=== PATIENT | female | born 1935 | race Caucasian/White ===

== ENCOUNTER 2016-07-04 15:22 | Emergency (ER) | payer OTHER, BC ==
[~2016-07-04] VITALS: Ht 154.9 cm; Wt 97.4 kg
[~2016-07-04 15:22] MED LIST: ALPRAZOLAM0.25 M2 PO; BENICAR40 MG; BYSTOLIC10 MG; DOXAZOSIN MESYLA2 MG; HYDROCHLOROTHIA25 MG PO; LEVOTHYROXINE100 MCG; LIPITOR20 MG; NIFEDIPINE ER60 MG; OCUVITE LUTEIN1 EACH PO; XARELTO10 MG PO
[2016-07-04 17:51] VITALS: BP 153/77
== END 2016-07-04 17:51 | disposition home or self-care (01) ==
LOC: EME 15:22 → RME 15:22
DX: S80.11XA Contusion of right lower leg, initial encounter (principal); Z79.01 Long term (current) use of anticoagulants; W22.8XXA Striking against or struck by other objects, initial encounter; E78.5 Hyperlipidemia, unspecified; I10 Essential (primary) hypertension; E03.9 Hypothyroidism, unspecified; Z88.2 Allergy status to sulfonamides; Z88.0 Allergy status to penicillin
CPT/HCPCS: 93971; 99281; 99283

== ENCOUNTER 2016-12-16 10:56 | Inpatient (IN) | payer OTHER, BC ==
[~2016-12-16] VITALS: Ht 154.9 cm; Wt 99.8 kg
[~2016-12-16 10:56] MED LIST changes: -BYSTOLIC10 MG; +BYSTOLIC10 MG PO; -DOXAZOSIN MESYLA2 MG; +DOXAZOSIN MESYLA2 MG PO; -LEVOTHYROXINE100 MCG; +LEVOTHYROXINE100 MCG PO; -LIPITOR20 MG; +LIPITOR20 MG PO
[2016-12-16 13:00] LABS: HEMATOCRIT 43.4 % (36.0-46.0); MCH 29.2 PG (29.0-34.0); MCHC 33.4 G/DL (30.0-36.0); MCV 87.3 FL (83-99); PLATELET COUNT 163 K/uL (156-360); RBC DIS.WIDTH-CV 13.1 % (11.8-14.6); RBC DIS.WIDTH-SD 41.4 % (39-53); RED BLOOD COUNT 4.97 M/uL (3.80-5.20); WHITE BLOOD COUNT 7.2 K/uL (4.1-10.2)
[2016-12-16 13:12] LABS: INTER. NORMALIZED RATIO 1.1; PROTHROMBIN TIME 11.8 SEC (10.2-12.9)
[2016-12-16 13:12] LABS: CHLORIDE 103 mEq/L (99-109); SODIUM 137 mEq/L (136-147)
[2016-12-16 13:13] LABS: MAGNESIUM 2.1 mg/dL (1.3-2.7)
[2016-12-16 13:14] LABS: D-DIMER ELISA < 150.00 ng/mLDDU (<230); PTT 29.8 SEC (25-37)
[2016-12-16 13:14] LABS: GLUCOSE 140 mg/dL (70-99)
[2016-12-16 13:16] LABS: ANION GAP 10 MEQ/L (2-14)
[2016-12-16 13:18] LABS: GFR ESTIMATE (CALCULATED) > 59 mL/min/
[2016-12-16 13:19] LABS: UREA NITROGEN (BUN) 17 mg/dL (9-23)
[2016-12-16 13:27] LABS: TROP-I INTERPRETATION NEGATIVE; TROPONIN-I < 0.01 ng/mL (0.0-0.30)
[2016-12-16] MEDS ORDERED: COZAAR100 MG PO (14:11)
[2016-12-16] MEDS ORDERED: XARELTO20 MG PO (14:11)
[2016-12-16] MEDS ORDERED: PRESERVISION T1 EACH PO (14:12)
[2016-12-16] MEDS ORDERED: CELEXA20 MG PO (14:13)
[2016-12-16] MEDS ORDERED: CALTRATE PLUS1 EACH PO (14:13)
[2016-12-16] MEDS ORDERED: PROCARDIA XL30 MG PO (14:14)
[2016-12-16 18:10] VITALS: BP 118/79
[2016-12-16 18:47] LABS: TROP-I INTERPRETATION NEGATIVE; TROPONIN-I 0.01 ng/mL (0.0-0.30)
[2016-12-16 19:45] VITALS: BP 113/68
[2016-12-16 22:58] VITALS: BP 114/78
[2016-12-17] VITALS (10 sets, daily range): BP systolic 108–161; BP diastolic 67–91
[2016-12-17 00:24] LABS: TROP-I INTERPRETATION NEGATIVE; TROPONIN-I 0.02 ng/mL (0.0-0.30)
[2016-12-17 05:51] LABS: MCHC 33.3 G/DL (30.0-36.0); MCV 87.2 FL (83-99); PLATELET COUNT 163 K/uL (156-360); RBC DIS.WIDTH-CV 13.2 % (11.8-14.6); RBC DIS.WIDTH-SD 42.3 % (39-53); RED BLOOD COUNT 4.93 M/uL (3.80-5.20); WHITE BLOOD COUNT 7.9 K/uL (4.1-10.2)
[2016-12-17 06:17] LABS: ANION GAP 10 MEQ/L (2-14); CHLORIDE 102 MEQ/L (99-109); GFR ESTIMATE (CALCULATED) > 59 mL/min/; GLUCOSE 130 mg/dL (70-99); POTASSIUM 3.7 MEQ/L (3.7-5.4); SAMPLE HEMOLYSIS CHECK 0; SAMPLE ICTERIC CHECK 0; SAMPLE LIPEMIA CHECK 0; SODIUM 136 MEQ/L (136-147); UREA NITROGEN (BUN) 16 mg/dL (9-23)
[2016-12-18 08:07] VITALS: BP 113/74
[2016-12-18] MEDS ORDERED: DILTIAZEM 24HR180 MG PO (09:16)
[2016-12-19] MEDS ORDERED: LOSARTAN POTAS100 MG PO (15:21)
[2016-12-19] MEDS ORDERED: TEMOVATE 0.05%30 GM TP (17:55)
== END 2016-12-18 09:47 | disposition home or self-care (01) | DRG 310 ==
LOC: EME 10:56 → EDOF 15:36 → 4EAST 15:36 → ENRESERV 15:37 → 4EAST 17:46
PROVIDERS: Emergency Medicine; Hospitalist
DX: I48.0 Paroxysmal atrial fibrillation (principal); R07.9 Chest pain, unspecified; I10 Essential (primary) hypertension; R42 Dizziness and giddiness; E03.9 Hypothyroidism, unspecified; E78.5 Hyperlipidemia, unspecified; E66.9 Obesity, unspecified; Z68.39 Body mass index [BMI] 39.0-39.9, adult; Z86.718 Personal history of other venous thrombosis and embolism; Z87.891 Personal history of nicotine dependence
CPT/HCPCS: 71010; 80048; 83735; 84443; 84484; 85027; 85379; 85610; 85730; 93005; 99281; 99285; J7040

== ENCOUNTER 2016-12-19 14:22 | Inpatient (IN) | payer OTHER, BC ==
[~2016-12-19] VITALS: Ht 180.3 cm; Wt 97.9 kg
[~2016-12-19 14:22] MED LIST changes: +CALTRATE PLUS1 EACH PO; +CELEXA20 MG PO; +COZAAR100 MG PO; +DILTIAZEM 24HR180 MG PO; +PRESERVISION T1 EACH PO; +PROCARDIA XL30 MG PO; +XARELTO20 MG PO
[2016-12-19 14:53] LABS: MCH 29.7 PG (29.0-34.0); MCV 87.4 FL (83-99); MEAN PLAT.VOLUME 12.6 uM^3 (9.5-12.4); PLATELET COUNT 175 K/uL (156-360); RBC DIS.WIDTH-CV 13.1 % (11.8-14.6); RBC DIS.WIDTH-SD 41.7 % (39-53); RED BLOOD COUNT 4.92 M/uL (3.80-5.20); WHITE BLOOD COUNT 7.8 K/uL (4.1-10.2)
[2016-12-19 15:05] LABS: CHLORIDE 102 mEq/L (99-109); POTASSIUM 3.9 mEq/L (3.7-5.4); SODIUM 135 mEq/L (136-147)
[2016-12-19 15:07] LABS: GLUCOSE 172 mg/dL (70-99)
[2016-12-19 15:08] LABS: ANION GAP 10 MEQ/L (2-14)
[2016-12-19 15:11] LABS: GFR ESTIMATE (CALCULATED) > 59 mL/min/; UREA NITROGEN (BUN) 19 mg/dL (9-23)
[2016-12-19 15:14] LABS: TROP-I INTERPRETATION NEGATIVE; TROPONIN-I < 0.01 ng/mL (0.0-0.30)
[2016-12-19] MEDS ORDERED: LOSARTAN POTAS100 MG PO (15:21)
[2016-12-19] MEDS ORDERED: TEMOVATE 0.05%30 GM TP (17:55)
[2016-12-19 20:29] VITALS: BP 152/73
[2016-12-19 23:50] VITALS: BP 125/78
[2016-12-20 04:27] VITALS: BP 140/84
[2016-12-20 05:12] LABS: HEMATOCRIT 39.9 % (36.0-46.0); MCH 29.9 PG (29.0-34.0); MCHC 33.8 G/DL (30.0-36.0); MCV 88.3 FL (83-99); MEAN PLAT.VOLUME 13.1 uM^3 (9.5-12.4); PLATELET COUNT 182 K/uL (156-360); RBC DIS.WIDTH-CV 13.4 % (11.8-14.6); RBC DIS.WIDTH-SD 43.6 % (39-53); RED BLOOD COUNT 4.52 M/uL (3.80-5.20); WHITE BLOOD COUNT 7.6 K/uL (4.1-10.2)
[2016-12-20 05:46] LABS: ANION GAP 8 MEQ/L (2-14); CHLORIDE 103 MEQ/L (99-109); GFR ESTIMATE (CALCULATED) > 59 mL/min/; POTASSIUM 3.9 MEQ/L (3.7-5.4); SAMPLE HEMOLYSIS CHECK 0; SAMPLE ICTERIC CHECK 0; SAMPLE LIPEMIA CHECK 0; SODIUM 138 MEQ/L (136-147); UREA NITROGEN (BUN) 20 mg/dL (9-23)
[2016-12-20 05:52] LABS: GLUCOSE 105 mg/dL (70-99)
[2016-12-20 08:21] VITALS: BP 176/97
[2016-12-20 11:40] VITALS: BP 137/70
[2016-12-20 13:06] LABS: ADD MIUA? NO; BILIRUBIN NEGATIVE; BLOOD NEGATIVE; COLOR YELLOW ((YELLOW)); GLUCOSE (STRIP) NEGATIVE; KETONES NEGATIVE; LEUKOCYTES NEGATIVE; NITRITE NEGATIVE; PROTEIN (STRIP) NEGATIVE; SPECIFIC GRAVITY 1.011 (1.000-1.030); UCUL ADDED? NO; UROBILINOGEN 0.2 MG/DL (0.2-1.0)
[2016-12-20 16:45] VITALS: BP 141/89
[2016-12-20 20:00] VITALS: BP 130/58
[2016-12-20 23:55] VITALS: BP 129/65
[2016-12-21 04:39] VITALS: BP 120/60
[2016-12-21 05:33] LABS: CHLORIDE 104 mEq/L (99-109); POTASSIUM 4.2 mEq/L (3.7-5.4); SODIUM 136 mEq/L (136-147)
[2016-12-21 05:35] LABS: EOSINOPHIL (%) 2.8 % (0-5); EOSINOPHIL COUNT 0.2 K/uL (0-0.3); GLUCOSE 114 mg/dL (70-99); HEMATOCRIT 39.3 % (36.0-46.0); IMMATURE GRANULOCYTE (%) 0.5 % (0.0-0.7); INSTRUMENT ABS NEUTROPHIL CT 4.7 K/uL; LYMPHOCYTE COUNT 2.5 K/uL (1.0-2.8); MCH 29.2 PG (29.0-34.0); MCHC 33.1 G/DL (30.0-36.0); MCV 88.3 FL (83-99); MEAN PLAT.VOLUME 13.3 uM^3 (9.5-12.4); MONOCYTE (%) 8.1 % (3-12); MONOCYTE COUNT 0.7 K/uL (0-0.8); NEUTROPHIL (%) 57.3 % (45-76); NEUTROPHIL COUNT 4.7 K/uL (1.8-6.4); PLATELET COUNT 174 K/uL (156-360); RBC DIS.WIDTH-CV 13.2 % (11.8-14.6); RBC DIS.WIDTH-SD 42.9 % (39-53); RED BLOOD COUNT 4.45 M/uL (3.80-5.20); WHITE BLOOD COUNT 8.2 K/uL (4.1-10.2)
[2016-12-21 05:36] LABS: ANION GAP 8 MEQ/L (2-14)
[2016-12-21 05:37] LABS: TOTAL BILIRUBIN 0.9 mg/dL (0.0-1.0)
[2016-12-21 05:39] LABS: ALKALINE PHOSPHATASE 74 IU/L (3-129); GFR ESTIMATE (CALCULATED) > 59 mL/min/
[2016-12-21 05:40] LABS: UREA NITROGEN (BUN) 19 mg/dL (9-23)
[2016-12-21 07:23] VITALS: BP 127/77
[2016-12-21 11:22] VITALS: BP 99/60
[2016-12-21] MEDS ORDERED: CARDIZEM CD360 MG PO (15:39)
== END 2016-12-21 17:31 | disposition home or self-care (01) | DRG 310 ==
LOC: EME 14:22 → EDOF 17:01 → 4EAST 17:01 → ENRESERV 17:03 → 4EAST 20:28 → ENPENDDIS 12-21 → 4EAST 12-21 17:31
PROVIDERS: Hospitalist
DX: I48.0 Paroxysmal atrial fibrillation (principal); I10 Essential (primary) hypertension; E78.5 Hyperlipidemia, unspecified; J44.9 Chronic obstructive pulmonary disease, unspecified; F41.0 Panic disorder [episodic paroxysmal anxiety]; E11.9 Type 2 diabetes mellitus without complications; E03.9 Hypothyroidism, unspecified; Z60.2 Problems related to living alone; E66.9 Obesity, unspecified; Z90.710 Acquired absence of both cervix and uterus; Z90.49 Acquired absence of other specified parts of digestive tract; Z88.0 Allergy status to penicillin; Z88.1 Allergy status to other antibiotic agents; Z68.37 Body mass index [BMI] 37.0-37.9, adult; Z79.02 Long term (current) use of antithrombotics/antiplatelets; Z88.2 Allergy status to sulfonamides; Z87.891 Personal history of nicotine dependence
CPT/HCPCS: 71010; 80048; 80053; 81003; 84484; 85025; 85027; 93005; 93306; 99281; 99285; G0378; J7050